=== PATIENT | male | born 1975 | race American Indian/Alaskan Native ===

== ENCOUNTER 2018-04-16 08:13 | Emergency (ER) | payer SELFPAY ==
[2018-04-16 08:32] VITALS: BP 134/82
[2018-04-16] MEDS ORDERED: MOTRIN PO ONE (10:11)
--- NOTE | 2018-04-16 10:14 | Emergency Department Report ---
ED Lower Extremity HPI - General Chief Complaint: Extremity Injury, Lower Stated Complaint: PITTING EDEMA Time Seen by Provider: 04/16/18 10:02 Source: EMS Mode of arrival: Ambulatory Limitations: No Limitations - History of Present Illness Initial Comments: This is a 42-year-old male nontoxic, well nourished in appearance, no acute signs of distress presents to the ED with c/o of bilateral foot and ankle pain and swelling 1 week. Patient denies any trauma. Patient stated he is homeless and has been walking a lot. Patient denies any other trauma. Patient denies any numbness, tingling, fever, chills, nausea, vomiting, chest pain, shortness of breath, headache, stiff neck. Patient denies any joint swelling or joint redness. Patient denies decreased range of motion. Patient stated has decreased gait due to pain. Patient denies any allergies or significant past medical history. MD Complaint: ankle injury, foot injury -: week(s) (1) Injury: Ankle: Left, Right, Foot: Right, Left Place: street/outdoors Severity: mild Severity scale (0 -10): 8 Improves With: immobilization Worsens With: movement, palpation Associated Symptoms: swelling, able to partially bear weight, ambulatory. denies: snap/pop sensation, numbness, tingling, unable to bear weight - Related Data Previous Rx's Medication Instructions Recorded Last Taken Type Ibuprofen [Motrin] 600 mg PO Q8H PRN #30 tablet 04/16/18 Unknown Rx Allergies Allergy/AdvReac Type Severity Reaction Status Date / Time No Known Allergies Allergy Unverified 04/16/18 08:28 ED Review of Systems ROS: Stated complaint: PITTING EDEMA Other details as noted in HPI Constitutional: denies: chills, fever Eyes: denies: eye pain, eye discharge, vision change ENT: denies: ear pain, throat pain Respiratory: denies: cough, shortness of breath, wheezing Cardiovascular: denies: chest pain, palpitations Endocrine: no symptoms reported Gastrointestinal: denies: abdominal pain, nausea, diarrhea Genitourinary: denies: urgency, dysuria Musculoskeletal: arthralgia. denies: back pain, joint swelling Skin: denies: rash, lesions Neurological: denies: headache, weakness, paresthesias Psychiatric: denies: anxiety, depression Hematological/Lymphatic: denies: easy bleeding, easy bruising ED Past Medical Hx - Past Medical History Previous Medical History?: No - Surgical History Past Surgical History?: No - Social History Smoking Status: Current Every Day Smoker Substance Use Type: Alcohol - Medications Home Medications: Home Medications Medication Instructions Recorded Confirmed Last Taken Type Ibuprofen [Motrin] 600 mg PO Q8H PRN #30 tablet 04/16/18 Unknown Rx ED Physical Exam - General Limitations: No Limitations General appearance: alert, in no apparent distress - Head Head exam: Present: atraumatic, normocephalic - Eye Eye exam: Present: normal appearance Pupils: Present: normal accommodation - ENT ENT exam: Present: normal exam, mucous membranes moist - Neck Neck exam: Present: normal inspection, full ROM - Respiratory Respiratory exam: Present: normal lung sounds bilaterally. Absent: respiratory distress, wheezes, rales, rhonchi, stridor, chest wall tenderness, accessory muscle use, decreased breath sounds, prolonged expiratory - Cardiovascular Cardiovascular Exam: Present: regular rate, normal rhythm, normal heart sounds. Absent: irregular rhythm, systolic murmur, diastolic murmur, rubs, gallop - GI/Abdominal GI/Abdominal exam: Present: soft, normal bowel sounds - Rectal Rectal exam: Present: deferred - Extremities Exam Extremities exam: Present: normal inspection, full ROM, tenderness, normal capillary refill, pedal edema. Absent: joint swelling, calf tenderness - Expanded Lower Extremity Exam Left Hip exam: Present: normal inspection (bilateral exam), full ROM. Absent: tenderness, swelling Upper Leg exam: Present: normal inspection (bilateral exam), full ROM. Absent: tenderness, swelling Knee exam: Present: normal inspection (bilateral exam), full ROM. Absent: tenderness, swelling Lower Leg exam: Present: normal inspection (bilateral exam), full ROM, tenderness. Absent: swelling, abrasion, laceration, ecchymosis, deformity, crepidus, dislocation, erythema, palpable cord, Dmitry's sign Ankle exam: Present: normal inspection (bilateral exam), full ROM (bilateral exam), tenderness (bilateral exam), swelling (bilateral exam). Absent: abrasion , laceration, ecchymosis, deformity, crepidus, dislocation, erythema, anterior draw sign Foot/Toe exam: Present: normal inspection (bilateral exam), full ROM (bilateral exam), tenderness (bilateral exam), swelling (bilateral exam). Absent: abrasion , laceration, ecchymosis, deformity, crepidus, dislocation, erythema, amputation , puncture wound, foreign body, calcaneal tenderness, tenderness at base of 5th metatarsal, nail avulsion, subungual hematoma Neuro vascular tendon exam: Present: no vascular compromise (bilateral exam). Absent: pulse deficit, abnormal cap refill, motor deficit, sensory deficit, tendon deficit, extremity cold to touch, pallor, abnormal 2-point discrimination , decreased fine/light touch, foot drop, peroneal nerve deficit, significant pain with passive ROM of distal joint Gait: Positive: observed and limited by pain (bilateral exam) - Back Exam Back exam: Present: normal inspection, full ROM. Absent: tenderness, CVA tenderness (R), CVA tenderness (L), muscle spasm, paraspinal tenderness, vertebral tenderness, rash noted - Neurological Exam Neurological exam: Present: alert, oriented X3, normal gait - Psychiatric Psychiatric exam: Present: normal affect, normal mood - Skin Skin exam: Present: warm, dry, intact, normal color. Absent: rash ED Course Vital Signs 04/16/18 08:28 Temperature 97.4 F L Pulse Rate 57 L Respiratory 18 Rate Blood Pressure 134/82 O2 Sat by Pulse 99 Oximetry - Reevaluation(s) Reevaluation #1: 04/16/18 10:15 Patient is speaking in full sentences with no signs of distress noted. Reevaluation #2: 04/16/18 10:15 patient has been consulted case management social worker due to homelessness. Pending case management social worker consult. ED Lower Extremity MDM - Medical Decision Making This is a 42-year-old female that presents with bilateral foot strain. Patient is stable and was examined by me. I referred patient to an orthopedic doctor for further evaluation for possible MRI. X-ray has been obtained and dictated by the radiologist. Patient is notified of the x-ray report with noted by the patient. Patient does have normal gait with no tenderness and no joint swelling. No ecchymosis. no joint redness or swelling. Not warm to touch. No signs of cellulites present. No calf tenderness or swelling. Patient was instructed to RICE therapy. Patient received Motrin for pain. Patient is discharged with Motrin. At time of discharge, the patient does not seem toxic or ill in appearance. No acute signs of distress noted. Patient agrees to discharge treatment plan of care. No further questions noted by the patient. Critical care attestation.: If time is entered above; I have spent that time in minutes in the direct care of this critically ill patient, excluding procedure time. ED Disposition Clinical Impression: Strain of ankle and foot Qualifiers: Encounter type: initial encounter Laterality: unspecified laterality Qualified Code(s): S96.919A - Strain of unspecified muscle and tendon at ankle and foot level, unspecified foot, initial encounter Disposition: TO HOME OR SELFCARE Is pt being admited?: No Does the pt Need Aspirin: No Condition: Stable Instructions: RICE Therapy (ED), Ibuprofen (By mouth) Additional Instructions: Follow-up with a primary care/orthopedic doctor in 3-5 days or if symptoms worsen and continue return to emergency room as soon as possible. Prescriptions: Ibuprofen [Motrin] 600 mg PO Q8H PRN #30 tablet PRN Reason: Pain Referrals: PRIMARY CARE, [Primary Care Provider] - 3-5 Days DIEGO GELLER MD [Staff Physician] - 3-5 Days PRITESH BAHENA MD [Staff Physician] - 3-[address] [facility] [Outside] - 3-5 Days [facility] [Outside] - 3-5 Days
--- NOTE | 2018-04-16 11:13 | XRay Report ---
BILATERAL ANKLES, 3 VIEWS BILATERAL FEET, 3 VIEWS History: Bilateral lower extremity swelling. Findings: There is moderate nonspecific soft tissue swelling or edema in both lower extremities. No soft tissue gas or foreign body is identified. Normal bone mineralization. No acute osseous findings or joint pathology is detected. Impression: Nonspecific soft tissue swelling or edema.
== END 2018-04-16 11:20 | disposition home or self-care (01) ==
LOC: ED 08:13
DX: S96.912A Strain of unspecified muscle and tendon at ankle and foot level, left foot, initial encounter (principal); S96.911A Strain of unspecified muscle and tendon at ankle and foot level, right foot, initial encounter; F17.200 Nicotine dependence, unspecified, uncomplicated; X58.XXXA Exposure to other specified factors, initial encounter; Y93.89 Activity, other specified; Y92.488 Other paved roadways as the place of occurrence of the external cause; Y99.8 Other external cause status
CPT/HCPCS: 99283

== ENCOUNTER 2020-12-07 02:21 | Emergency (ER) | payer SELFPAY ==
--- NOTE | 2020-12-07 02:40 | Emergency Department Report ---
ED Male HPI - General Stated complaint: DIFFICULT URINATING Source: patient Limitations: No Limitations - History of Present Illness Initial comments: Patient 45-year-old -[place] male who presents with urinary retention. Patient denies history of prostate issues, no history of renal stones, no history of STI, patient denies fevers or chills. States dysuria scant amount unable to void for past 2 days. Looks obtain bladder scan residual greater than [address] catheter to bedside drain. Obtain UA and urine culture. MD Complaint: dysuria - Related Data Previous Rx's Medication Instructions Recorded Last Taken Type Ibuprofen [Motrin] 600 mg PO Q8H PRN #30 tablet 04/16/18 Unknown Rx Allergies Allergy/AdvReac Type Severity Reaction Status Date / Time No Known Allergies Allergy Verified 12/07/20 02:46 ED Review of Systems ROS: Stated complaint: DIFFICULT URINATING Other details as noted in HPI Constitutional: denies: chills, fever Eyes: denies: eye pain, eye discharge, vision change ENT: denies: ear pain, throat pain Respiratory: denies: cough, shortness of breath, wheezing Cardiovascular: denies: chest pain, palpitations Endocrine: no symptoms reported Gastrointestinal: denies: abdominal pain, nausea, diarrhea Genitourinary: urgency, dysuria. denies: hematuria, discharge, testicular pain, testicular mass Musculoskeletal: denies: back pain, joint swelling, arthralgia Skin: denies: rash, lesions Neurological: denies: headache, weakness, paresthesias Psychiatric: denies: anxiety, depression Hematological/Lymphatic: denies: easy bleeding, easy bruising ED Past Medical Hx - Social History Smoking Status: Current Every Day Smoker Substance Use Type: Alcohol - Medications Home Medications: Home Medications Medication Instructions Recorded Confirmed Last Taken Type Ibuprofen [Motrin] 600 mg PO Q8H PRN #30 tablet 04/16/18 Unknown Rx ED Physical Exam - General General appearance: alert, in no apparent distress - Head Head exam: Present: atraumatic - Eye Eye exam: Present: normal appearance - ENT ENT exam: Present: mucous membranes moist - Neck Neck exam: Present: normal inspection - Respiratory Respiratory exam: Present: normal lung sounds bilaterally. Absent: respiratory distress - Cardiovascular Cardiovascular Exam: Present: regular rate, normal rhythm. Absent: systolic murmur, diastolic murmur, rubs, gallop - GI/Abdominal GI/Abdominal exam: Present: soft, normal bowel sounds. Absent: distended, tenderness, guarding, rebound, rigid, bruit, hernia - Rectal Rectal exam: Present: deferred - Extremities Exam Extremities exam: Present: normal inspection, full ROM, normal capillary refill - Back Exam Back exam: Present: normal inspection, full ROM. Absent: tenderness, CVA tenderness (R), CVA tenderness (L) - Neurological Exam Neurological exam: Present: alert, oriented X3, CN II-XII intact, normal gait - Psychiatric Psychiatric exam: Present: normal affect, normal mood - Skin Skin exam: Present: warm, dry, intact, normal color. Absent: rash ED Course Vital Signs 12/07/20 02:29 Temperature 97.8 F Pulse Rate 72 Respiratory 19 Rate Blood Pressure 121/69 O2 Sat by Pulse 99 Oximetry Critical care attestation.: If time is entered above; I have spent that time in minutes in the direct care of this critically ill patient, excluding procedure time. ED Disposition Condition: Stable
[2020-12-07 03:15] LABS: Bilirubin,Urine NEG (Negative); Blood,Urine NEG (Negative); Color,Urine Yellow (Yellow); Mucus,Urine FEW /HPF; Protein,Urine <15 mg/dL mg/dL (Negative); Urobilinogen,Urine < 2.0 mg/dL (<2.0)
--- NOTE | 2020-12-07 06:26 | Emergency Department Report ---
ED General Adult HPI - General Chief complaint: Urogenital-Male Stated complaint: DIFFICULT URINATING Time Seen by Provider: 12/07/20 02:49 Source: patient Mode of arrival: Ambulatory Limitations: No Limitations - History of Present Illness Initial comments: This is a 45-year-old man who states that he has the acute onset of urinary frequency and retention since 8:00 last night. He denies previous problems. He did however produce a urine specimen that showed less than 15 mg/dL of protein, negative glucose negative ketones and negative leukoesterase with 1 white cell and 1 red cell. He states he feels some fullness of his bladder. He has no history of diabetes. He does not report a change in his urine output per se. I have explained to the patient that for urinary retention a catheter placement can be diagnostic and therapeutic. He is totally opposed to that. He is anxious to go to the bathroom to urinate. He refuses a Gonzalez catheter. -: Gradual, hour(s) Location: abdomen (No pain per se) Quality: other (Urgency) Consistency: intermittent Improves with: none Worsens with: none Associated Symptoms: denies other symptoms Treatments Prior to Arrival: none - Related Data Previous Rx's Medication Instructions Recorded Last Taken Type Ibuprofen [Motrin] 600 mg PO Q8H PRN #30 tablet 04/16/18 Unknown Rx Tamsulosin [Flomax] 0.4 mg PO QDAY #10 cap 12/07/20 Unknown Rx Allergies Allergy/AdvReac Type Severity Reaction Status Date / Time No Known Allergies Allergy Verified 12/07/20 02:46 ED Review of Systems ROS: Stated complaint: DIFFICULT URINATING Other details as noted in HPI Constitutional: denies: chills, fever Eyes: denies: eye pain, eye discharge, vision change ENT: denies: ear pain, throat pain Respiratory: denies: cough, shortness of breath, wheezing Cardiovascular: denies: chest pain, palpitations Endocrine: no symptoms reported Gastrointestinal: denies: abdominal pain, nausea, diarrhea Genitourinary: urgency, dysuria. denies: hematuria, discharge, testicular pain, testicular mass Musculoskeletal: denies: back pain, joint swelling, arthralgia Skin: denies: rash, lesions Neurological: denies: headache, weakness, paresthesias Psychiatric: denies: anxiety, depression Hematological/Lymphatic: denies: easy bleeding, easy bruising ED Past Medical Hx - Past Medical History Previous Medical History?: No - Surgical History Past Surgical History?: No - Social History Smoking Status: Current Every Day Smoker Substance Use Type: Alcohol - Medications Home Medications: Home Medications Medication Instructions Recorded Confirmed Last Taken Type Ibuprofen [Motrin] 600 mg PO Q8H PRN #30 tablet 04/16/18 Unknown Rx Tamsulosin [Flomax] 0.4 mg PO QDAY #10 cap 12/07/20 Unknown Rx ED Physical Exam - General Limitations: Physical Limitation General appearance: alert, in no apparent distress, other (Poor cooperation) - Head Head exam: Present: atraumatic, normocephalic - Eye Eye exam: Present: normal appearance. Absent: scleral icterus - ENT ENT exam: Present: mucous membranes moist - Neck Neck exam: Present: normal inspection - Respiratory Respiratory exam: Present: normal lung sounds bilaterally. Absent: respiratory distress - Cardiovascular Cardiovascular Exam: Present: regular rate, normal rhythm. Absent: systolic murmur, diastolic murmur, rubs, gallop - GI/Abdominal GI/Abdominal exam: Present: soft, normal bowel sounds, other (Clinically it does not appear that the patient's bladder is distended). Absent: distended, tenderness, guarding, rebound, rigid - Rectal Rectal exam: Present: deferred - Extremities Exam Extremities exam: Present: normal inspection - Back Exam Back exam: Present: normal inspection - Neurological Exam Neurological exam: Present: alert, oriented X3, CN II-XII intact. Absent: motor sensory deficit - Psychiatric Psychiatric exam: Present: normal affect, anxious - Skin Skin exam: Present: warm, dry, intact, normal color. Absent: rash ED Course Vital Signs 12/07/20 12/07/20 02:29 07:47 Temperature 97.8 F 98.1 F Pulse Rate 72 57 L Respiratory 19 18 Rate Blood Pressure 121/69 Blood Pressure 117/80 [Right] O2 Sat by Pulse 99 100 Oximetry - Reevaluation(s) Reevaluation #1: The patient has declined Gonzalez catheter placement. A bladder scan was ordered by the midlevel practitioner. I do not know if this is readily available. If so we will take a look at these findings. I will give the patient a Flomax while we check his blood work. 12/07/20 06:27 ED Medical Decision Making - Lab Data Result diagrams: 12/07/20 07:17 12/07/20 07:17 Critical care attestation.: If time is entered above; I have spent that time in minutes in the direct care of this critically ill patient, excluding procedure time. ED Disposition Clinical Impression: Urinary hesitancy, Urethritis Disposition: DC-01 TO HOME OR SELFCARE Is pt being admited?: No Does the pt Need Aspirin: No Condition: Stable Instructions: Urodynamic Testing, [id number], Urethritis, Adult Additional Instructions: I gave you an antibiotic just in case this is due to infection. I will give you additional Flomax doses as needed. Evaluation by urologist is recommended. See referral. Prescriptions: Tamsulosin [Flomax] 0.4 mg PO QDAY #10 cap Referrals: PRIMARY CARE, [Primary Care Provider] - 3-5 Days [facility] [Provider Group] - 2-3 Days Forms: STI Treatment and Prevention
[2020-12-07] MEDS ORDERED: TAMSULOSIN 0.4 MG CAP PO ONE (06:27)
[2020-12-07] MEDS ORDERED: AZITHROMYCIN 250 MG TAB PO ONE (06:27)
[2020-12-07 07:28] LABS: Basophils # (Auto) 0.1 K/mm3 (0.0-0.1); Basophils % (Auto) 0.8 % (0.0-1.8); Eosinophils % (Auto) 0.1 % (0.0-4.3); Hematocrit 43.2 % (35.5-45.6); Hemoglobin 14.1 gm/dl (11.8-15.2); Lymphocytes # (Auto) 1.6 K/mm3 (1.2-5.4); Lymphocytes % (Auto) 22.8 % (13.4-35.0); Mean Corpuscular HGB Conc 33 % (32-34); Mean Corpuscular Volume 94 fl (84-94); Monocytes # (Auto) 0.6 K/mm3 (0.0-0.8); Monocytes % (Auto) 7.9 % (0.0-7.3); Platelet Count 368 K/mm3 (140-440); Red Blood Count 4.61 M/mm3 (3.65-5.03); Red Cell Distribution Width 12.9 % (13.2-15.2)
[2020-12-07 07:36] LABS: BUN/Creatinine Ratio 10; Blood Urea Nitrogen 11 mg/dL (9-20); Calcium 9.3 mg/dL (8.4-10.2); Hemolysis Index 2
[2020-12-07 07:48] VITALS: BP 117/80
== END 2020-12-07 09:20 | disposition home or self-care (01) ==
LOC: ED 02:21
DX: R39.11 Hesitancy of micturition (principal); N34.2 Other urethritis; F17.200 Nicotine dependence, unspecified, uncomplicated; Z79.899 Other long term (current) drug therapy
CPT/HCPCS: 36415; 80048; 81001; 85025; 87086; 99283

== ENCOUNTER 2021-02-13 21:12 | Emergency (ER) | payer SELFPAY ==
[2021-02-13 23:04] VITALS: BP 115/61
[2021-02-14] MEDS ORDERED: LIDOCAINE (1%) 10 MG/1 ML VIAL 20 ML MDV INFILTRATI ONE ×2 (00:19→03:30)
[2021-02-14] MEDS ORDERED: ONDANSETRON 4 MG ODT TAB PO ONE ×2 (00:19→03:30)
[2021-02-14] MEDS ORDERED: oxyCODONE /ACETAMINOPHEN 5-325MG TAB PO ONE ×2 (00:19→03:30)
[2021-02-14] MEDS ORDERED: SULFAMETHOXAZOLE/TRIMETHOPRIM 800/160MG DS TAB PO ONE ×2 (00:19→03:30)
[2021-02-14] MEDS ORDERED: IBUPROFEN 800 MG TAB PO ONE ×2 (00:19→03:30)
[2021-02-14] MEDS ORDERED: CLINDAMYCIN 150 MG CAP PO ONE (00:19)
--- NOTE | 2021-02-14 05:32 | Emergency Department Report ---
ED General Adult HPI - General Chief complaint: Skin/Abscess/Foreign Body Stated complaint: POSSIBLE SPIDER BITE Source: patient Mode of arrival: Ambulatory Limitations: No Limitations - History of Present Illness Initial comments: Patient is a 45-year-old -Citizen Of [place] male with no past medical history presents to the ED with complaint of acute onset persistent painful swollen mild erythematous maculopapular rash on left gluteal cleft for the last 1 week. Patient states that the pain got worse in the last 2 days such that he is not able to sit down or walk because of worsening pain. Patient denies fever, chills, nausea, vomiting, traumatic injury, dizziness, syncope, numbness and tingling or weakness of lower extremities bilaterally, saddle paresthesia, low back pain, abdominal pain, urinary or bowel incontinence. MD Complaint: swollen painful erythematous rash on left gluteus -: Sudden, week(s) (1) Location: buttocks (left gluteus) Radiation: non-radiation Severity scale (0 -10): 10 Quality: aching, sharp, constant Consistency: constant Improves with: none Worsens with: movement Associated Symptoms: denies other symptoms, rash (swollen painful erythematous rash on left gluteus). denies: confusion, chest pain, cough, diaphoresis, fever/chills, headaches, loss of appetite, malaise, nausea/vomiting, seizure, shortness of breath, syncope, weakness Treatments Prior to Arrival: none - Related Data Previous Rx's Medication Instructions Recorded Last Taken Type Ibuprofen [Motrin] 600 mg PO Q8H PRN #30 tablet 04/16/18 Unknown Rx Tamsulosin [Flomax] 0.4 mg PO QDAY #10 cap 12/07/20 Unknown Rx Acetaminophen/Codeine [Tylenol 1 tab PO Q6H PRN #12 tab 02/14/21 Unknown Rx /Codeine # 3 tab] Ibuprofen [Motrin] 800 mg PO Q8HR PRN #30 tablet 02/14/21 Unknown Rx Sulfamethoxazole/Trimethoprim 1 each PO Q12H #20 tablet 02/14/21 Unknown Rx [Bactrim DS TAB] Allergies Allergy/AdvReac Type Severity Reaction Status Date / Time No Known Allergies Allergy Verified 12/07/20 02:46 ED Review of Systems ROS: Stated complaint: POSSIBLE SPIDER BITE Other details as noted in HPI Constitutional: denies: chills, fever Eyes: denies: eye pain, eye discharge, vision change ENT: denies: ear pain, throat pain Respiratory: denies: cough, shortness of breath, wheezing Cardiovascular: denies: chest pain, palpitations Endocrine: no symptoms reported Gastrointestinal: denies: abdominal pain, nausea, vomiting, diarrhea Genitourinary: denies: urgency, dysuria Musculoskeletal: denies: back pain, joint swelling, arthralgia Skin: rash (swollen painful erythematous maculopapular rash on left gluteus). denies: lesions Neurological: denies: headache, weakness, paresthesias Psychiatric: denies: anxiety, depression Hematological/Lymphatic: denies: easy bleeding, easy bruising ED Past Medical Hx - Past Medical History Previous Medical History?: No - Surgical History Past Surgical History?: No - Social History Smoking Status: Current Every Day Smoker Substance Use Type: Alcohol - Medications Home Medications: Home Medications Medication Instructions Recorded Confirmed Last Taken Type Ibuprofen [Motrin] 600 mg PO Q8H PRN #30 tablet 04/16/18 Unknown Rx Tamsulosin [Flomax] 0.4 mg PO QDAY #10 cap 12/07/20 Unknown Rx Acetaminophen/Codeine [Tylenol 1 tab PO Q6H PRN #12 tab 02/14/21 Unknown Rx /Codeine # 3 tab] Ibuprofen [Motrin] 800 mg PO Q8HR PRN #30 tablet 02/14/21 Unknown Rx Sulfamethoxazole/Trimethoprim 1 each PO Q12H #20 tablet 02/14/21 Unknown Rx [Bactrim DS TAB] ED Physical Exam - General Limitations: No Limitations General appearance: alert, in no apparent distress - Head Head exam: Present: atraumatic, normocephalic, normal inspection - Eye Eye exam: Present: normal appearance, PERRL, EOMI Pupils: Present: normal accommodation - ENT ENT exam: Present: normal exam, normal orophraynx, mucous membranes moist, TM's normal bilaterally, normal external ear exam - Neck Neck exam: Present: normal inspection, full ROM - Respiratory Respiratory exam: Present: normal lung sounds bilaterally. Absent: respiratory distress, wheezes, rales, rhonchi, chest wall tenderness, accessory muscle use, prolonged expiratory - Cardiovascular Cardiovascular Exam: Present: regular rate, normal rhythm, normal heart sounds. Absent: systolic murmur, diastolic murmur, rubs, gallop - GI/Abdominal GI/Abdominal exam: Present: soft, normal bowel sounds. Absent: tenderness, guarding, hyperactive bowel sounds, hypoactive bowel sounds, organomegaly, bruit - Extremities Exam Extremities exam: Present: normal inspection, full ROM, normal capillary refill - Back Exam Back exam: Present: normal inspection, full ROM. Absent: tenderness, CVA tenderness (R), CVA tenderness (L), muscle spasm, paraspinal tenderness - Neurological Exam Neurological exam: Present: alert, oriented X3, CN II-XII intact, normal gait, reflexes normal - Psychiatric Psychiatric exam: Present: normal affect, normal mood - Skin Skin exam: Present: warm, dry, intact, normal color, rash (Swollen severely tender fluctuant mildly erythematous maculopapular rash on left gluteal cleft), erythema ED Course Vital Signs 02/13/21 02/14/21 23:03 03:41 Temperature 99.2 F Pulse Rate 60 Respiratory 18 20 Rate Blood Pressure 115/61 [Right] O2 Sat by Pulse 100 Oximetry - I & D Left Buttocks Type of Procedure: Simple Site: left gluteal cleft Blade Size: 11 I & D Procedure: betadine prep, sterile drapes applied, sterile dressing applied, gauze wick placed Progress: The abscess wound was incised and drained per protocol after cleaning the area with normal saline and Betadine solution. The area was incised and drained after application of local anesthetic lidocaine 1% solution. The area was then incised and drained and copious thick purulent discharge drained from the wound. The wound was then debrided extensively with normal saline and if loculations were broken with a hemostat. Iodoform quarter inch gauze was packed into the wound. The wound was then dressed appropriately and the patient tolerated the procedure well. On reevaluation, patient's pain is well controlled with medications. ED Medical Decision Making - Medical Decision Making This is a 45-year-old -Citizen Of [place] male with no past medical history presents to the ED with complaint of acute onset persistent painful swollen mild erythematous maculopapular rash on left gluteal cleft for the last 1 week. Patient states that the pain got worse in the last 2 days such that he is not able to sit down or walk because of worsening pain. In the ED, patient is alert and oriented x3 in distress any distress. Patient is hemodynamically stable. Patient was treated for pain in the ED and given initial oral antibiotics in the ED. Left gluteal abscess was incised and drained per protocol and the patient tolerated the procedure well. On reevaluation, patient's pain is well controlled medications. The wound was dressed appropriately and the patient will discharge home on pain medications and antibiotics and was advised return to the ED in 2 days for wound recheck and packing removal. Patient was also advised to follow- up with his primary care physician in 7 to 10 days for reevaluation. - Differential Diagnosis Cellulitis of buttocks; cutaneous abscess; folliculitis Critical care attestation.: If time is entered above; I have spent that time in minutes in the direct care of this critically ill patient, excluding procedure time. ED Disposition Clinical Impression: Cellulitis and abscess of buttock, Acute folliculitis Disposition: TO HOME OR SELFCARE Is pt being admited?: No Does the pt Need Aspirin: No Condition: Stable Instructions: Incision and Drainage, Care After, Cellulitis, Adult, [id number], Skin Abscess, [id number] Additional Instructions: Take medication with food, drink plenty of fluids and follow-up with your primary care physician in 7 to 10 days for reevaluation. Return to the ED immediately if symptoms get worse, otherwise return to the ED in 2 days for wound recheck and packing removal. Prescriptions: Sulfamethoxazole/Trimethoprim [Bactrim DS TAB] 1 each PO Q12H #20 tablet Ibuprofen [Motrin] 800 mg PO Q8HR PRN #30 tablet PRN Reason: Pain , Severe (7-10) Acetaminophen/Codeine [Tylenol /Codeine # 3 tab] 1 tab PO Q6H PRN #12 tab PRN Reason: Pain , Severe (7-10) Referrals: ANDRES LOCKETT MD [Staff Physician] - 3-5 Days Forms: Work/School Release Form(ED) Time of Disposition: 05:32 Print Language: CAMBODIAN
== END 2021-02-14 05:55 | disposition home or self-care (01) ==
LOC: ED 21:12
DX: L02.31 Cutaneous abscess of buttock (principal); L73.8 Other specified follicular disorders; F17.200 Nicotine dependence, unspecified, uncomplicated; Z79.899 Other long term (current) drug therapy
CPT/HCPCS: 99282; Q0162

== ENCOUNTER 2021-02-18 22:06 | Emergency (ER) | payer SELFPAY ==
--- NOTE | 2021-02-19 00:13 | Emergency Department Report ---
- General Chief complaint: Wound/Laceration Stated complaint: BANDAGE CHANGE Time Seen by Provider: 02/19/21 00:08 Source: patient Mode of arrival: Ambulatory Limitations: No Limitations - History of Present Illness Initial comments: Patient is a 45-year-old male presents emergency room complaints of packing removal from the left gluteal region. The packing was placed on 02/14/2021 after an I&D procedure for an abscess. Patient reports he has been taking his antibiotics. He denies any further drainage but states that he sees a small amount of bleeding occasionally. He denies any increased pain, increased swelling, increased drainage or odor, fever, vomiting, chills. No past medical history. No allergies to medications. - Related Data Previous Rx's Medication Instructions Recorded Last Taken Type Ibuprofen [Motrin] 600 mg PO Q8H PRN #30 tablet 04/16/18 Unknown Rx Tamsulosin [Flomax] 0.4 mg PO QDAY #10 cap 12/07/20 Unknown Rx Acetaminophen/Codeine [Tylenol 1 tab PO Q6H PRN #12 tab 02/14/21 Unknown Rx /Codeine # 3 tab] Ibuprofen [Motrin] 800 mg PO Q8HR PRN #30 tablet 02/14/21 Unknown Rx Sulfamethoxazole/Trimethoprim 1 each PO Q12H #20 tablet 02/14/21 Unknown Rx [Bactrim DS TAB] Allergies Allergy/AdvReac Type Severity Reaction Status Date / Time No Known Allergies Allergy Verified 12/07/20 02:46 Abscess Boil HPI - HPI Chief Complaint: Wound/Laceration Stated Complaint: BANDAGE CHANGE Time Seen by Provider: 02/19/21 00:08 Home Medications: Previous Rx's Medication Instructions Recorded Last Taken Type Ibuprofen [Motrin] 600 mg PO Q8H PRN #30 tablet 04/16/18 Unknown Rx Tamsulosin [Flomax] 0.4 mg PO QDAY #10 cap 12/07/20 Unknown Rx Acetaminophen/Codeine [Tylenol 1 tab PO Q6H PRN #12 tab 02/14/21 Unknown Rx /Codeine # 3 tab] Ibuprofen [Motrin] 800 mg PO Q8HR PRN #30 tablet 02/14/21 Unknown Rx Sulfamethoxazole/Trimethoprim 1 each PO Q12H #20 tablet 02/14/21 Unknown Rx [Bactrim DS TAB] Allergies/Adverse Reactions: Allergies Allergy/AdvReac Type Severity Reaction Status Date / Time No Known Allergies Allergy Verified 12/07/20 02:46 ED Review of Systems ROS: Stated complaint: BANDAGE CHANGE Other details as noted in HPI Comment: All other systems reviewed and negative ED Past Medical Hx - Past Medical History Previous Medical History?: No - Surgical History Past Surgical History?: No - Social History Smoking Status: Never Smoker Substance Use Type: None - Medications Home Medications: Home Medications Medication Instructions Recorded Confirmed Last Taken Type Ibuprofen [Motrin] 600 mg PO Q8H PRN #30 tablet 04/16/18 Unknown Rx Tamsulosin [Flomax] 0.4 mg PO QDAY #10 cap 12/07/20 Unknown Rx Acetaminophen/Codeine [Tylenol 1 tab PO Q6H PRN #12 tab 02/14/21 Unknown Rx /Codeine # 3 tab] Ibuprofen [Motrin] 800 mg PO Q8HR PRN #30 tablet 02/14/21 Unknown Rx Sulfamethoxazole/Trimethoprim 1 each PO Q12H #20 tablet 02/14/21 Unknown Rx [Bactrim DS TAB] ED Physical Exam - General Limitations: No Limitations General appearance: alert, in no apparent distress - Head Head exam: Present: atraumatic, normocephalic - Eye Eye exam: Present: normal appearance - ENT ENT exam: Present: mucous membranes moist - Respiratory Respiratory exam: Absent: respiratory distress, accessory muscle use - Neurological Exam Neurological exam: Present: alert, oriented X3 - Psychiatric Psychiatric exam: Present: normal affect, normal mood - Skin Skin exam: Present: warm, dry, other (sole tacker: indu jaramillo, there is some packing hanging out of a 1 cm incision to the distal left gluteus region, there is mild induration of the skin, no fluctuance, no drainage, no surrounding cellulitis) ED Course Vital Signs 02/18/21 02/19/21 23:24 00:15 Temperature 98.8 F 98.2 F Pulse Rate 64 71 Respiratory 18 16 Rate Blood Pressure 115/63 Blood Pressure 112/56 [Left] O2 Sat by Pulse 99 100 Oximetry ED Medical Decision Making - Medical Decision Making Patient is a 45-year-old male presents emergency room complaints of packing removal from the left gluteal region. The packing was placed on 02/14/2021 after an I&D procedure for an abscess. Patient reports he has been taking his antibiotics. He denies any further drainage but states that he sees a small amount of bleeding occasionally. He denies any increased pain, increased swelling, increased drainage or odor, fever, vomiting, chills. No past medical history. No allergies to medications. Vitals are normal. On exam:sole tacker: indu jaramillo, there is some packing hanging out of a 1 cm incision to the distal left gluteus region, there is mild induration of the skin, no fluctuance, no drainage, no surrounding cellulitis. Packing removed without any complications, there is no drainage, unable to manually express any drainage, no bleeding, irrigated with saline, clean sterile dressing applied. Advised patient Please take your antibiotics to completion. Keep area clean, dry, covered. Wash with antibacterial soap and water twice a day and pat dry. Use triple antibiotic or Neosporin ointment. No hot tub, no pool, no soaking in water. Showering is fine. Follow-up with your primary care doctor. Follow-up with a general surgeon. Return to emergency room immediately for any new or worsening symptoms including but not limited to worsening swelling, worsening redness, fever, chills, worsening drainage, foul odor, etc. Critical care attestation.: If time is entered above; I have spent that time in minutes in the direct care of this critically ill patient, excluding procedure time. ED Disposition Clinical Impression: Encounter for abscess packing removal Disposition: DC- TO HOME OR SELFCARE Is pt being admited?: No Does the pt Need Aspirin: No Condition: Stable Instructions: Wound Care, Adult Additional Instructions: Please take your antibiotics to completion. Keep area clean, dry, covered. Wash with antibacterial soap and water twice a day and pat dry. Use triple antibiotic or Neosporin ointment. No hot tub, no pool, no soaking in water. Showering is fine. Follow-up with your primary care doctor. Follow-up with a general surgeon. Return to emergency room immediately for any new or worsening symptoms including but not limited to worsening swelling, worsening redness, fever, chills, worsening drainage, foul odor, etc. Referrals: CONSUELO ZHANG MD [Staff Physician] - 3-5 Days [facility] [Provider Group] - 3-5 Days AMRITA GEORGE DO [Staff Physician] - 3-5 Days Time of Disposition: 00:11 Print Language: ITALIAN
[2021-02-19 00:16] VITALS: BP 112/56
== END 2021-02-19 00:29 | disposition home or self-care (01) ==
LOC: ED 22:06
DX: L02.31 Cutaneous abscess of buttock (principal); Z48.00 Encounter for change or removal of nonsurgical wound dressing; Z79.1 Long term (current) use of non-steroidal anti-inflammatories (NSAID); Z79.899 Other long term (current) drug therapy
CPT/HCPCS: 99282

== ENCOUNTER 2021-11-01 12:59 | Emergency (ER) | payer SELFPAY ==
[2021-11-01 17:45] VITALS: BP 96/54
--- NOTE | 2021-11-01 18:01 | Emergency Department Report ---
ED Extremity Problem HPI - General Chief complaint: Back Pain/Injury Stated complaint: LEG PAIN Time Seen by Provider: 11/01/21 17:50 Source: patient Mode of arrival: Ambulatory Limitations: No Limitations - History of Present Illness Initial comments: Patient is a 46-year-old F [place] male who is presenting with right leg pain. States that the shooting pain that goes from his right lower back into the leg. States is worse with trying to walk and sitting. Pain is estimated at 7 out of 10 in severity. Denies any bowel or bladder dysfunction at this time except for some chronic BPH type symptoms.. No cough cold congestion fevers or chills. Pain has been present for the last 4 to 5 days Severity scale (0 -10): 9 - Related Data Previous Rx's Medication Instructions Recorded Last Taken Type Ibuprofen [Motrin] 600 mg PO Q8H PRN #30 tablet 04/16/18 Unknown Rx Tamsulosin [Flomax] 0.4 mg PO QDAY #10 cap 12/07/20 Unknown Rx Acetaminophen/Codeine [Tylenol 1 tab PO Q6H PRN #12 tab 02/14/21 Unknown Rx /Codeine # 3 tab] Ibuprofen [Motrin] 800 mg PO Q8HR PRN #30 tablet 02/14/21 Unknown Rx Sulfamethoxazole/Trimethoprim 1 each PO Q12H #20 tablet 02/14/21 Unknown Rx [Bactrim DS TAB] Ketorolac [Toradol] 10 mg PO Q6H PRN #12 tablet 11/01/21 Unknown Rx predniSONE [Deltasone] 50 mg PO QDAY #5 tab 11/01/21 Unknown Rx Allergies Allergy/AdvReac Type Severity Reaction Status Date / Time No Known Allergies Allergy Verified 11/01/21 17:45 ED Review of Systems ROS: Stated complaint: LEG PAIN Other details as noted in HPI Comment: All other systems reviewed and negative ED Past Medical Hx - Social History Smoking Status: Never Smoker Substance Use Type: None - Medications Home Medications: Home Medications Medication Instructions Recorded Confirmed Last Taken Type Ibuprofen [Motrin] 600 mg PO Q8H PRN #30 tablet 04/16/18 Unknown Rx Tamsulosin [Flomax] 0.4 mg PO QDAY #10 cap 12/07/20 Unknown Rx Acetaminophen/Codeine [Tylenol 1 tab PO Q6H PRN #12 tab 02/14/21 Unknown Rx /Codeine # 3 tab] Ibuprofen [Motrin] 800 mg PO Q8HR PRN #30 tablet 02/14/21 Unknown Rx Sulfamethoxazole/Trimethoprim 1 each PO Q12H #20 tablet 02/14/21 Unknown Rx [Bactrim DS TAB] Ketorolac [Toradol] 10 mg PO Q6H PRN #12 tablet 11/01/21 Unknown Rx predniSONE [Deltasone] 50 mg PO QDAY #5 tab 11/01/21 Unknown Rx ED Physical Exam - General Limitations: No Limitations General appearance: alert, in no apparent distress - Head Head exam: Present: atraumatic, normocephalic - Eye Eye exam: Present: normal appearance, PERRL, EOMI - ENT ENT exam: Present: mucous membranes moist - Neck Neck exam: Present: normal inspection - Respiratory Respiratory exam: Present: normal lung sounds bilaterally. Absent: respiratory distress, wheezes, rales, rhonchi - Cardiovascular Cardiovascular Exam: Present: regular rate, normal rhythm. Absent: systolic murmur, diastolic murmur, rubs, gallop - GI/Abdominal GI/Abdominal exam: Present: soft, normal bowel sounds. Absent: distended, tenderness - Rectal Rectal exam: Present: deferred - Extremities Exam Extremities exam: Present: normal inspection - Back Exam Back exam: Present: normal inspection - Neurological Exam Neurological exam: Present: alert, oriented X3 - Psychiatric Psychiatric exam: Present: normal affect, normal mood - Skin Skin exam: Present: warm, dry, intact, normal color. Absent: rash ED Course Vital Signs 11/01/21 17:41 Pulse Rate 61 Respiratory 16 Rate Blood Pressure 96/54 [Right] O2 Sat by Pulse 98 Oximetry ED Medical Decision Making - Medical Decision Making Patient with lumbar radiculopathy type symptoms. Patient be given medication for symptomatic relief and given orthopedics for follow-up. Critical care attestation.: If time is entered above; I have spent that time in minutes in the direct care of this critically ill patient, excluding procedure time. ED Disposition Clinical Impression: Lumbar radiculopathy, acute Disposition: HOME / SELF CARE / HOMELESS Is pt being admited?: No Does the pt Need Aspirin: No Condition: Stable Instructions: Radicular Pain, Sciatica Referrals: VIV BYERS II, MD [Staff Physician] - 3-5 Days Time of Disposition: 17:57
== END 2021-11-01 18:37 | disposition home or self-care (01) ==
LOC: ED 12:59
DX: M54.16 Radiculopathy, lumbar region (principal); M79.604 Pain in right leg; Z79.899 Other long term (current) drug therapy
CPT/HCPCS: 99282